=== PATIENT | female | born 1945 | race Caucasian/White ===

== ENCOUNTER 2019-01-13 09:50 | Emergency (ER) | payer OTHER ==
[~2019-01-13] VITALS: Ht 160 cm; Wt 74.4 kg
[2019-01-13] MEDS ORDERED: TRANDOLAPRIL4 MG (10:04)
[2019-01-13] MEDS ORDERED: VERAPAMIL ER120 MG (10:04)
[2019-01-13] MEDS ORDERED: WELLBUTRIN XL150 M1 (10:04)
[2019-01-13] MEDS ORDERED: ATORVASTATIN CA40 MG (10:05)
[2019-01-13] MEDS ORDERED: NAMENDA10 MG (10:05)
[2019-01-13] MEDS ORDERED: NEURONTIN300 MG (10:05)
[2019-01-13] MEDS ORDERED: LATANOPROST2.5 ML (10:05)
== END 2019-01-13 15:52 | disposition home or self-care (01) ==
LOC: ER 09:50
DX: M13.832 Other specified arthritis, left wrist (principal)